=== PATIENT | male | born 1945 | race Hispanic/Latino ===

== ENCOUNTER 2020-04-14 08:03 | Emergency (ER) | payer OTHER ==
[~2020-04-14] VITALS: Ht 167.6 cm; Wt 57.7 kg
[2020-04-14] MEDS ORDERED: ASPI81CH33 PO (08:25)
[2020-04-14] MEDS ORDERED: ATOR1TAB21 PO (08:25)
[2020-04-14] MEDS ORDERED: LISI10TA15 PO (08:25)
--- OUTSIDE RECORDS SUMMARY | 2020-04-14 09:15 | CCD ---
Author Author [facility] Organization [facility] Address Unknown Phone Unavailable Support Name Relationship Address Phone UE Next Of Kin Unknown Unavailable FACILITY, [place] ADLER Next Of Kin [id number] [facility] [address] [place] [address] Re-disclosure Warning The records that you are about to access may contain information from federally-assisted alcohol or drug abuse programs. If such information is present, then the following federally mandated warning applies: This information has been disclosed to you from records protected by federal confidentiality rules (42 CFR part 2). The federal rules prohibit you from making any further disclosure of this information unless further disclosure is expressly permitted by the written consent of the person to whom it pertains or as otherwise permitted by 42 CFR part 2. A general authorization for the release of medical or other information is NOT sufficient for this purpose. The Federal rules restrict any use of the information to criminally investigate or prosecute any alcohol or drug abuse patient.The records that you are about to access may contain highly sensitive health information, the redisclosure of which is protected by Article 27-F of the [facility] Public Health law. If you continue you may have access to information: Regarding HIV / AIDS; Provided by facilities licensed or operated by the [facility] Office of Mental Health; or Provided by the [facility] Office for People With Developmental Disabilities. If such information is present, then the following [facility] mandated warning applies: This information has been disclosed to you from confidential records which are protected by state law. State law prohibits you from making any further disclosure of this information without the specific written consent of the person to whom it pertains, or as otherwise permitted by law. Any unauthorized further disclosure in violation of state law may result in a fine or custodial sentence or both. A general authorization for the release of medical or other information is NOT sufficient authorization for further disc losure. Insurance Providers Payer name Policy type / Coverage type Policy ID Covered republican ID Covered republican's relationship to gipson Policy [employer] Plan Information [employer] FAC [id number] SP [id number] Results ID Date Data Source [id number] 02/18/2020 12:00:00 AM EST [facility] Name Value Range Interpretation Code Description Data Rachael rce(s) Supporting Document(s) SARS-CoV-2 (COVID-19) RNA [Presence] in Respiratory specimen by [facility]INO with probe detection [facility] This lab was ordered by [facility] and reported by [employer]. ID Date Data Source [id number] 08/28/2019 12:00:00 AM EDT [facility] Name Value Range Interpretation Code Description Data Rachael rce(s) Supporting Document(s) 2019-nCoV RNA XXX [facility]+probe-Imp [facility] This lab was ordered by [facility] and reported by [employer] Procedure
[2020-04-14] MEDS ORDERED: LIDOCAINE W/EPINEPHRINE 1% 20ML VIAL SC ONE (09:30)
[2020-04-14] MEDS ORDERED: BOOSTRIX/ADACEL VACCINE (DIPHTH/PERTUSS/ACELL/TETANUS) 0.5ML SYR IM ONE (09:30)
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
[2020-04-14 10:40] VITALS: BP 182/99
== END 2020-04-14 11:00 | disposition home or self-care (01) ==
LOC: EDBD 08:03 → M ED 08:03
DX: S01.81XA Laceration without foreign body of other part of head, initial encounter (principal); V09.9XXA Pedestrian injured in unspecified transport accident, initial encounter; Y92.148 Other place in prison as the place of occurrence of the external cause; I10 Essential (primary) hypertension; E78.00 Pure hypercholesterolemia, unspecified; Z79.899 Other long term (current) drug therapy; Z79.82 Long term (current) use of aspirin